=== PATIENT | female | born 1950 | race Two or more races ===

== ENCOUNTER 2023-12-09 06:27 | Day surgery (SDC) | payer MEDICARE, SELFPAY ==
[2023-12-09] VITALS (14 sets, daily range): BP systolic 116–162; BP diastolic 63–125; BMI 38.9
[2023-12-09] MEDS: Pyridium 200 MG PO (09:46)
[2023-12-09] MEDS: NORMOSOL-R 1000 IV (09:46)
[2023-12-09] MEDS: DILAUDID 0.5 MG IV (13:05)
--- NOTE | 2023-12-09 14:31 | PTCARENOTE ---
Report given to Moni. Patient still needs d/c instructions and also to get up and void with a PVR. AMY [place] aware. Will monitor patient.
== END 2023-12-09 15:47 | disposition home or self-care (01) ==
LOC: SDS 06:27
PROVIDERS: ATTENDING PHYSICIAN Obstetrics & Gynecology
DX: N39.3 Stress incontinence (female) (male) (principal); N90.7 Vulvar cyst
CPT/HCPCS: 57288; 11422; 88304; C1771

== ENCOUNTER 2024-02-24 06:23 | Day surgery (SDC) | payer MEDICARE, SELFPAY ==
[2024-02-24 09:36] VITALS: BMI 37.3
[2024-02-24 09:37] VITALS: BMI 37.3
[2024-02-24 09:38] VITALS: BP 140/90
[2024-02-24] MEDS: Pyridium 200 MG PO (09:56)
[2024-02-24 11:22] VITALS: BP 93/46
[2024-02-24 11:31] VITALS: BP 110/54
[2024-02-24 11:45] VITALS: BP 123/81
== END 2024-02-24 12:17 | disposition home or self-care (01) ==
LOC: SDS 06:23
PROVIDERS: ATTENDING PHYSICIAN Obstetrics & Gynecology
DX: N39.3 Stress incontinence (female) (male) (principal); N36.42 Intrinsic sphincter deficiency (ISD)
CPT/HCPCS: 51715; L8606